=== PATIENT | female | born 1995 | race Caucasian/White ===

== ENCOUNTER 2017-02-21 11:28 | Emergency (ER) | payer SELFPAY ==
--- NOTE | 2017-02-21 12:41 | ER Document Report ---
ED General - General Chief Complaint: Sore Throat Stated Complaint: SORE THROAT Time Seen by Provider: 02/21/17 12:26 Mode of Arrival: Ambulatory Information source: Patient Notes: 21-year-old female presents with complaints of the sore throat of 3-4 day duration and then left ear pain as well. Patient denies any fevers or chills admits pain when she swallows. Patient has had multiple streps and ear infections in the past has not had any recently TRAVEL OUTSIDE OF THE [place] IN LAST 30 DAYS: No - HPI Onset: Other Onset/Duration: Persistent Quality of pain: Achy Severity: Mild Pain Level: 1 Associated symptoms: Earache, Sore throat Exacerbated by: Food Relieved by: Denies Similar symptoms previously: No Recently seen / treated by doctor: No - Related Data Allergies/Adverse Reactions: No Known Allergies Allergy (Verified 02/21/17 12:07) Home Medications: Current Home Medications Gabapentin [Neurontin 300 mg Capsule] 300 mg PO Q8 02/21/17 [History] Lurasidone HCl [Latuda 60 mg Tablet] 60 mg PO DAILY 02/21/17 [History] Past Medical History - Social History Smoking Status: Current Every Day Smoker Cigarette use (# per day): Yes Chew tobacco use (# tins/day): No Smoking Education Provided: No Frequency of alcohol use: None Drug Abuse: None Family History: Reviewed & Not Pertinent Patient has suicidal ideation: No Renal/ Medical History: Denies: Hx Peritoneal Dialysis Psychiatric Medical History: Reports: Hx Bipolar Disorder Surgical Hx: Negative Review of Systems - Review of Systems Notes: REVIEW OF SYSTEMS: CONSTITUTIONAL : Denies fever, chills, or sweats. Denies recent illness. EENT: admits to sore throat and left ear pain CARDIOVASCULAR: Denies chest pain. Denies palpitations or racing or irregular heart beat. Denies ankle edema. RESPIRATORY: Denies cough, cold, or chest congestion. Denies shortness of breath, difficulty breathing, or wheezing. GASTROINTESTINAL: Denies abdominal pain or distention. Denies nausea, vomiting , or diarrhea. Denies blood in vomitus, stools, or per rectum. Denies black, tarry stools. Denies constipation. GENITOURINARY: Denies difficulty urinating, painful urination, burning, frequency, blood in urine, or discharge. FEMALE GENITOURINARY: Denies vaginal bleeding, heavy or abnormal periods, irregular periods. Denies vaginal discharge or odor. MUSCULOSKELETAL: Denies back or neck pain or stiffness. Denies joint pain or swelling. SKIN: Denies rash, lesions or sores. HEMATOLOGIC : Denies easy bruising or bleeding. LYMPHATIC: Denies swollen, enlarged glands. NEUROLOGICAL: Denies confusion or altered mental status. Denies passing out or loss of consciousness. Denies dizziness or lightheadedness. Denies headache. Denies weakness or paralysis or loss of use of either side. Denies problems with gait or speech. Denies sensory loss, numbness, or tingling. Denies seizures. PSYCHIATRIC: Denies anxiety or stress. Denies depression, suicidal ideation, or homicidal ideation. ALL OTHER SYSTEMS REVIEWED AND NEGATIVE. PHYSICAL EXAMINATION: GENERAL: Well-appearing, well-nourished and in no acute distress. HEAD: Atraumatic, normocephalic. EYES: Pupils equal round and reactive to light, extraocular movements intact, conjunctiva are normal. ENT: bilateral tonsillar enlargement with ulcerations, left ear exudative NECK: Normal range of motion, supple without lymphadenopathy LUNGS: Breath sounds clear to auscultation bilaterally and equal. No wheezes rales or rhonchi. HEART: Regular rate and rhythm without murmurs ABDOMEN: Soft, nontender, nondistended abdomen. No guarding, no rebound. No masses appreciated. Female : deferred Musculoskeletal: Normal range of motion, no pitting or edema. No cyanosis. NEUROLOGICAL: Cranial nerves grossly intact. Normal speech, normal gait. Normal sensory, motor exams PSYCH: Normal mood, normal affect. SKIN: Warm, Dry, normal turgor, no rashes or lesions noted. Dictation was performed using [employer] voice recognition software Physical Exam - Vital signs Vitals: Temp Pulse Resp BP Pulse Ox 98.6 F 72 16 99/60 L 98 02/21/17 11:42 02/21/17 11:42 02/21/17 11:42 02/21/17 11:42 02/21/17 11:42 Course - Re-evaluation Re-evalutation: 02/21/17 12:52 Patient has otitis media, rapid step pending 02/21/17 13:20 Strep was negative After performing a Medical Screening Examination, I estimate there is LOW risk for ACUTE CORONARY SYNDROME, RESPIRATORY FAILURE, SEPSIS OR MENINGITIS, thus I consider the discharge disposition reasonable. I have reevaluated this patient multiple times and no significant life threatening changes are noted. The patient and I have discussed the diagnosis and risks, and we agree with discharging home with close follow-up. We also discussed returning to the Emergency Department immediately if new or worsening symptoms occur. We have discussed the symptoms which are most concerning (e.g., changing or worsening pain, trouble swallowing or breathing, neck stiffness, fever) that necessitate immediate return. - Vital Signs Vital signs: Temp Pulse Resp BP Pulse Ox 98.6 F 72 16 99/60 L 98 02/21/17 11:42 02/21/17 11:42 02/21/17 11:42 02/21/17 11:42 02/21/17 11:42 Discharge - Discharge Clinical Impression: Sore throat (viral) Otitis media Qualifiers: Otitis media type: suppurative Chronicity: acute Laterality: left Recurrence: not specified as recurrent Spontaneous tympanic membrane rupture: without spontaneous rupture Qualified Code(s): H66.002 - Acute suppurative otitis media without spontaneous rupture of ear drum, left ear Condition: Stable Disposition: HOME, SELF-CARE Instructions: Otitis Media ([facility]) Prescriptions: Amoxicillin 875 mg PO BID #20 tablet Referrals: [facility] [Provider Group] - Follow up tomorrow
[2017-02-21 13:27] VITALS: BP 100/65
== END 2017-02-21 13:27 | disposition home or self-care (01) ==
LOC: ER 11:28
DX: J02.8 Acute pharyngitis due to other specified organisms (principal); B97.89 Other viral agents as the cause of diseases classified elsewhere; H66.002 Acute suppurative otitis media without spontaneous rupture of ear drum, left ear; F17.210 Nicotine dependence, cigarettes, uncomplicated
CPT/HCPCS: 87070; 87880; 99283

== ENCOUNTER 2017-02-24 18:09 | Emergency (ER) | payer SELFPAY ==
[2017-02-24] MEDS ORDERED: CLINDAMYCIN PHOSPHATE INJ 300 MG/2 ML SDV IV ONE (20:13)
[2017-02-24] MEDS ORDERED: DEXAMETHASONE SOD PHOS INJ 10 MG/1 ML VIAL IV ONE (20:15)
[2017-02-24] MEDS ORDERED: HYDROMORPHONE HCL INJ/PF 2 MG/ML AMPULE IV ONE ×2 (20:16→22:57)
[2017-02-24 20:40] LABS: ABSOLUTE EOSINOPHILS # (AUTO) 0.1 10^3/uL (0.0-0.6); ABSOLUTE LYMPHOCYTES (AUTO) 1.1 10^3/uL (0.5-4.7); ABSOLUTE MONOCYTES (AUTO) 0.9 10^3/uL (0.1-1.4); ABSOLUTE NEUT (AUTO) 6.7 10^3/uL (1.7-8.2); BASOPHILS % (AUTO) 0.5 % (0-2); EOSINOPHILS % (AUTO) 1.4 % (0-6); HEMATOCRIT 40.8 % (36.0-47.0); HEMOGLOBIN 14.3 g/dL (12.0-15.5); HGB HCT DIFFERENCE 2.1; LYMPHOCYTES % (AUTO) 12.3 % (13-45); MEAN CORPUSCULAR HEMOGLOBIN 31.3 pg (27.0-33.4); MEAN CORPUSCULAR VOLUME 90 fl (80-97); MONOCYTES % (AUTO) 9.9 % (3-13); RED BLOOD COUNT 4.56 10^6/uL (3.72-5.28); RED CELL DISTRIBUTION WIDTH 12.4 % (11.5-14.0); SEGMENTED NEUTROPHILS % (AUTO) 75.9 % (42-78); WHITE BLOOD COUNT 8.8 10^3/uL (4.0-10.5)
[2017-02-24 20:51] LABS: ALANINE AMINOTRANSFERASE 19 U/L (9-52); ALBUMIN 4.9 g/dL (3.5-5.0); ALKALINE PHOSPHATASE 88 U/L (38-126); ANION GAP 16 (5-19); ASPARTATE AMINO TRANSFERASE 18 U/L (14-36); BILIRUBIN,DIRECT 0.7 mg/dL (0.0-0.4); BILIRUBIN,TOTAL 1.4 mg/dL (0.2-1.3); BLOOD UREA NITROGEN 13 mg/dL (7-20); CALCIUM 9.8 mg/dL (8.4-10.2); CARBON DIOXIDE 22 mmol/L (22-30); CHLORIDE 97 mmol/L (98-107); CREATININE RESULT 0.74 mg/dL (0.52-1.25); GLUCOSE 91 mg/dL (75-110); POTASSIUM 4.1 mmol/L (3.6-5.0); SODIUM 134.6 mmol/L (137-145); TOTAL PROTEIN 8.4 g/dL (6.3-8.2)
--- NOTE | 2017-02-24 21:00 | ER Document Report ---
ED Medical Screen (RME) - General Chief Complaint: Sore Throat Stated Complaint: THROAT PAIN Time Seen by Provider: 02/24/17 20:03 Information source: Patient, Relative TRAVEL OUTSIDE OF THE [place]. IN LAST 30 DAYS: No - Related Data Allergies/Adverse Reactions: No Known Allergies Allergy (Verified 02/21/17 12:07) Past Medical History Renal/ Medical History: Denies: Hx Peritoneal Dialysis Psychiatric Medical History: Reports: Hx Bipolar Disorder Physical Exam - Vital signs Vitals: Temp Pulse BP Pulse Ox 99.4 F 107 H 113/64 99 02/24/17 18:38 02/24/17 18:38 02/24/17 18:38 02/24/17 18:38 Course - Vital Signs Vital signs: Temp Pulse Resp BP Pulse Ox 99.4 F 107 H 113/64 99 02/24/17 18:38 02/24/17 18:38 02/24/17 18:38 02/24/17 18:38 - Laboratory Result Diagrams: 02/24/17 20:21 02/24/17 20:21 Laboratory results interpreted by me: 02/24/17 02/24/17 20:21 20:21 Lymphocytes % 12.3 L Sodium 134.6 L Chloride 97 L Total Bilirubin 1.4 H Direct Bilirubin 0.7 H Total Protein 8.4 H
--- NOTE | 2017-02-24 21:57 | RADIOLOGY REPORT (SQ) ---
EXAM DESCRIPTION: CT SOFT TISSUE NECK WITH COMPLETED DATE/TIME: 02/24/2017 9:15 pm REASON FOR STUDY: throat swelling COMPARISON: None. TECHNIQUE: Post IV contrasted scanning from skull base through lung apices with review of bone, soft tissue and lung windows. Reconstructed coronal and sagittal MPR images reviewed. All images stored on PACS. All CT scanners at this facility use dose modulation, iterative reconstruction, and/or weight based d osing when appropriate to reduce radiation dose to as low as reasonably achievable (ALARA). [facility]: Dose Right [facility]: CareDose [facility]: Dose Right [facility]: Teradose 4D [facility]: Mobile Tracing Services CONTRAST TYPE AND DOSE: contrast/concentration: Isovue 370.00 mg/ml; Total Contrast Delivered: 75.0 ml; Total Saline Delivered: 45.0 ml RENAL FUNCTION: None required. The patient is less than 50 years old. RADIATION DOSE: Up-to-date CT equipment and radiation dose reduction techniques were employed. CTDIv ol: 6.7 mGy. DLP: 220 mGy-cm. . LIMITATIONS: None. FINDINGS: SKULL BASE: Intact. MAJOR SALIVARY GLANDS: No solid or cystic masses. No inflammatory changes. LYMPHADENOPATHY: No adenopathy. MUCOSAL MASSES OR ASYMMETRY: Moderate tonsillar and parapharyngeal mucosal swelling. 2.5 cm left lloyd tonsillar abscess. LARYNX/CORDS: No abnormal findings. VASCULAR STRUCTURES: The major vessels are patent. LUNG APICES: Clear. BONES: Intact. THYROID: Normal size. No masses. PARANASAL SINUSES: Clear. OTHER: No other significant finding. IMPRESSION: 2.5 cm left peritonsillar abscess. TECHNICAL DOCUMENTATION: JOB ID: [id number] Quality ID # [id number]: Final reports with documentation of one or more dose reduction techniques (e.g., Au tomated exposure control, adjustment of the mA and/or kV according to patient size, use of iterative reconstruction technique) 2010 [employer]- All Rights Reserved
--- NOTE | 2017-02-24 22:11 | ER Document Report ---
ED General - General Chief Complaint: Sore Throat Stated Complaint: THROAT PAIN Time Seen by Provider: 02/24/17 20:03 Information source: Patient, Relative Notes: Patient is a 21-year-old female comes to emergency room complaining of a severe sore throat. Her and state that she was seen in this emergency room on February 21, 2017 with a similar complaint of having a sore throat. Patient was started on amoxicillin 875 twice a day and was sent home. Patient states that she thought she was getting better but yesterday the sore throat began to get worse and the swelling became worse to where she can barely open her mouth and has difficult time maintaining her own secretions. She has had a low-grade fever. Further history reveals patient stating that she has a long history of multiple times having strep throat in the past. She has a history of mitral valve prolapse and dysautonomia. She continues to smoke 2 packs of cigarettes a day. Last menstrual period approximately 2 weeks ago TRAVEL OUTSIDE OF THE [place] IN LAST 30 DAYS: No - HPI Pain Level: 5 Associated symptoms: Body/muscle aches, Drooling, Fever, Nausea, Sore throat, Weakness. denies: Vomiting Exacerbated by: Food Relieved by: Denies Similar symptoms previously: Yes Recently seen / treated by doctor: Yes - Related Data Allergies/Adverse Reactions: No Known Allergies Allergy (Verified 02/21/17 12:07) Past Medical History - General Information source: Patient, Relative Last Menstrual Period: 2 weeks ago - Social History Smoking Status: Current Every Day Smoker - 2 packs a day Lives with: Family, Spouse/Significant other Family History: None, Reviewed & Not Pertinent - Past Medical History Cardiac Medical History: Reports: Other - History of mitral valve prolapse Other: Dysautonomia Pulmonary Medical History: Reports: None EENT Medical History: Reports: Throat Neurological Medical History: Reports: None Renal/ Medical History: Denies: Hx Peritoneal Dialysis GI Medical History: Reports: None Skin Medical History: Reports None Psychiatric Medical History: Reports: None, Hx Bipolar Disorder Review of Systems - Review of Systems Constitutional: Fever, Malaise EENT: Throat pain, Difficulty swallowing, Throat swelling Cardiovascular: No symptoms reported Respiratory: No symptoms reported Gastrointestinal: No symptoms reported Genitourinary: No symptoms reported Female Genitourinary: No symptoms reported Musculoskeletal: No symptoms reported Skin: No symptoms reported Hematologic/Lymphatic: No symptoms reported Neurological/Psychological: No symptoms reported Physical Exam - Vital signs Vitals: Temp Pulse BP Pulse Ox 99.4 F 107 H 113/64 99 02/24/17 18:38 02/24/17 18:38 02/24/17 18:38 02/24/17 18:38 Interpretation: Febrile - General General appearance: Other - As stated this is a 21-year-old female who appears ill at this time. She is slightly pale little with drawn difficulty and swelling is noticeable on examination.. No: Appears well In distress: None - HEENT Head: Normocephalic, Atraumatic Mouth/Lips: No: Angioedema Mucous membranes: Moist Pharynx: Erythema, Exudate, Peritonsillar abscess, Tonsillar hypertrophy, Other - Currently patient uvula is only obstructed on the left side whether it is touching the right side is open and airways patent. Neck: Anterior cervical chain - Respiratory Respiratory status: No respiratory distress Chest status: Nontender Breath sounds: Normal, Other - On physical examination the patient's chest and respiratory function are normal at this time. Airway is patent. Breath sounds are clear to auscultation.. No: Rales, Rhonchi, Stridor, Wheezing - Cardiovascular Rhythm: Tachycardia Heart sounds: Normal auscultation - Neurological Cognition: Normal Orientation: AAOx4 [place] Line Coma Scale Eye Opening: Spontaneous Binh Coma Scale Verbal: Oriented Binh Coma Scale Motor: Obeys Commands Binh Coma Scale Total: 15 - Skin Skin Temperature: Cool Skin Moisture: Moist Skin Color: Pale Skin Turgor: Elastic Course - Vital Signs Vital signs: Temp Pulse Resp BP Pulse Ox 99.1 F 90 18 116/71 95 02/24/17 22:53 02/24/17 22:53 02/24/17 22:53 02/24/17 22:53 02/24/17 22:53 - Laboratory Result Diagrams: 02/24/17 20:21 02/24/17 20:21 Laboratory results interpreted by me: 02/24/17 02/24/17 20:21 20:21 Lymphocytes % 12.3 L Sodium 134.6 L Chloride 97 L Total Bilirubin 1.4 H Direct Bilirubin 0.7 H Total Protein 8.4 H - Diagnostic Test Radiology reviewed: Reports reviewed Radiology results interpreted by me: 02/24/17 22:15 Radiology reports patient has a 2.5 left peritonsillar abscess. Critical Care Note - Critical Care Note Total time excluding time spent on procedures (mins): 75 Comments: Patient has been here for extended period of time secondary to her present condition and also for discussions [id number] with who is originally seen patient on February 21, 2017 and treated with antibiotics. Since we had to wait extended period of time for patient's labs as well as CT come back we did place her on some clindamycin IV. I did contact [facility] transfer at [phone] and talk to the presenting nurse at that time. She put him in contact with the ears nose and throat consulting solution director Dr. Anglin to call me back right away and we had a discussion about patient's condition. He felt the patient breathing much easier since the steroids and fluids had gone in as well as her trismus subsiding and her drooling also stopping the he would rather do her outpatient tomorrow at his clinic. While Dr. Anglin was on the phone went back and reevaluated patient 1 more time she agrees with this presentation and she is electing to see him at his off-site facility which is at [address] [place] [address] [facility] office. Number there is [phone] per Dr. Anglin patient is to contact the office first thing in the morning between 12/28/1929 and see him in that office for the abscess. He has requested that we place her on Augmentin 875 twice daily as well as some Lortab elixir and prednisone 10 mg 1 tablet in the morning before going. Discharge - Discharge Clinical Impression: Peritonsillar abscess Condition: Stable Disposition: HOME, SELF-CARE Instructions: Abscess ([facility]), Oral Narcotic Medication ([facility]) Additional Instructions: At this time he can go home. As we discussed he will see ears nose and throat specialist Dr. Anglin his office number is [phone] your call this number after 8 AM in the morning and he wants you to go to his [place] office which is at [address] [place] [address] as stated in [facility] office. We are having you take the Augmentin medication as well as take one 20 mg prednisone tablet first thing in the morning. We also discussed should you have any increasing shortness of breath or unable to handling her secretions return to ER at once for a recheck. Prescriptions: Amox Tr/Potassium Clavulanate [Augmentin 875-125 Tablet] 1 tab PO BID 14 Days # 28 tablet Hydrocodone/Acetaminophen [Hydrocodon-Acetamin 7.5-325/15] 10 ml PO Q6H PRN # 120 ml PRN Reason: For Pain Forms: Elevated Blood Pressure, Return to Work
[2017-02-24] MEDS ORDERED: NORMAL SALINE 1000 ML 1,000 ML IV ONE (22:56)
[2017-02-25] MEDS ORDERED: HYDROMORPHONE HCL INJ/PF 2 MG/ML AMPULE IV ONE (00:24)
[2017-02-25 00:41] VITALS: BP 108/64
== END 2017-02-25 00:42 | disposition home or self-care (01) ==
LOC: ER 18:09
DX: J36 Peritonsillar abscess (principal); R50.9 Fever, unspecified; R53.81 Other malaise; F17.210 Nicotine dependence, cigarettes, uncomplicated
CPT/HCPCS: 96376; 99283; 96361; 96375; 96365; 36415; 87040; 87070; 87880; 85025; 80053; 70491; J1170; J7030; J1100

== ENCOUNTER 2017-10-03 20:55 | Emergency (ER) | payer SELFPAY ==
--- NOTE | 2017-10-03 21:47 | ER Document Report ---
ED Medical Screen (RME) - General Chief Complaint: Chest Pain Stated Complaint: CHEST PAIN Time Seen by Provider: 10/03/17 21:44 Notes: 21-year-old female, chief complaint of feeling discomfort in her chest, feeling lightheaded, and she states she feels like her heart is making irregular beats. She reports that she has increased significant discomfort when she feels the irregular beats. She denies passing out, nausea vomiting, pain is from the lower chest to the upper chest and nonspecific. She denies history of the same. She smokes, she admits to some caffeine use today but not in excess. She denies recreational drugs. LMP within the past month. TRAVEL OUTSIDE OF THE [place] IN LAST 30 DAYS: No - Related Data Allergies/Adverse Reactions: No Known Allergies Allergy (Verified 02/21/17 12:07) Past Medical History - Social History Chew tobacco use (# tins/day): No Frequency of alcohol use: None Drug Abuse: None Renal/ Medical History: Denies: Hx Peritoneal Dialysis Psychiatric Medical History: Reports: Hx Bipolar Disorder Physical Exam - Vital signs Vitals: Temp Pulse Resp BP Pulse Ox 98.0 F 87 20 134/87 H 100 10/03/17 21:42 10/03/17 21:42 10/03/17 21:42 10/03/17 21:42 10/03/17 21:42 - Respiratory Respiratory status: No respiratory distress Breath sounds: Normal. No: Decreased air movement, Wheezing - Cardiovascular Rhythm: Regular. No: Irregularly irregular, Extrasystoles, Tachycardia Heart sounds: Normal auscultation, S1 appreciated, S2 appreciated Course - Vital Signs Vital signs: Temp Pulse Resp BP Pulse Ox 98.0 F 87 20 134/87 H 100 10/03/17 21:42 10/03/17 21:42 10/03/17 21:42 10/03/17 21:42 10/03/17 21:42
--- NOTE | 2017-10-03 22:35 | RADIOLOGY REPORT (SQ) ---
EXAM DESCRIPTION: CHEST 2 VIEWS COMPLETED DATE/TIME: 10/03/2017 10:02 pm REASON FOR STUDY: chest pain COMPARISON: None. TECHNIQUE: Frontal and lateral radiographic views of the chest acquired. NUMBER OF VIEWS: Two view. LIMITATIONS: None. FINDINGS: LUNGS AND PLEURA: No opacities, masses or pneumothorax. No pleural effusion. MEDIASTINUM AND HILAR STRUCTURES: No masses or contour abnormalities. HEART AND VASCULAR STRUCTURES: Heart normal size. No evidence for failure. BONES: No acute findings. HARDWARE: None in the chest. OTHER: No other significant finding. IMPRESSION: NO SIGNIFICANT RADIOGRAPHIC FINDING IN THE CHEST. TECHNICAL DOCUMENTATION: JOB ID: [id number] [employer]- All Rights Reserved Reading location - IP/workstation name: [email or web address]
[2017-10-03 22:36] LABS: ABSOLUTE BASOPHILS # (AUTO) 0.1 10^3/uL (0.0-0.2); ABSOLUTE EOSINOPHILS # (AUTO) 0.7 10^3/uL (0.0-0.6); ABSOLUTE LYMPHOCYTES (AUTO) 2.4 10^3/uL (0.5-4.7); ABSOLUTE MONOCYTES (AUTO) 0.8 10^3/uL (0.1-1.4); ABSOLUTE NEUT (AUTO) 2.7 10^3/uL (1.7-8.2); BASOPHILS % (AUTO) 1.1 % (0-2); EOSINOPHILS % (AUTO) 11.1 % (0-6); HEMATOCRIT 41.8 % (36.0-47.0); HEMOGLOBIN 14.3 g/dL (12.0-15.5); LYMPHOCYTES % (AUTO) 36.1 % (13-45); MEAN CORPUSCULAR HEMOGLOBIN 30.9 pg (27.0-33.4); MEAN CORPUSCULAR HGB CONC 34.1 g/dL (32.0-36.0); MEAN CORPUSCULAR VOLUME 91 fl (80-97); MONOCYTES % (AUTO) 11.4 % (3-13); PLATELET COUNT 204 10^3/uL (150-450); RED BLOOD COUNT 4.61 10^6/uL (3.72-5.28); RED CELL DISTRIBUTION WIDTH 13.8 % (11.5-14.0); SEGMENTED NEUTROPHILS % (AUTO) 40.3 % (42-78); TOTAL CELLS COUNTED % (AUTO) 100 %; WHITE BLOOD COUNT 6.7 10^3/uL (4.0-10.5)
[2017-10-03 22:40] LABS: APPEARANCE,URINE CLEAR; BILIRUBIN,URINE NEGATIVE (NEGATIVE); COLOR,URINE YELLOW; GLUCOSE, URINE NEGATIVE (NEGATIVE); KETONES,URINE NEGATIVE (NEGATIVE); LEUKOCYTE ESTERASE,URINE TRACE (NEGATIVE); NITRITE,URINE NEGATIVE (NEGATIVE); PROTEIN,URINE NEGATIVE (NEGATIVE); URINE SPECIFIC GRAVITY 1.021
[2017-10-03 22:54] LABS: ALANINE AMINOTRANSFERASE 23 U/L (9-52); ALBUMIN 4.7 g/dL (3.5-5.0); ALKALINE PHOSPHATASE 45 U/L (38-126); ANION GAP 12 (5-19); ASPARTATE AMINO TRANSFERASE 18 U/L (14-36); BILIRUBIN,DIRECT 0.3 mg/dL (0.0-0.4); BILIRUBIN,TOTAL 0.3 mg/dL (0.2-1.3); BLOOD UREA NITROGEN 10 mg/dL (7-20); CALCIUM 9.9 mg/dL (8.4-10.2); CARBON DIOXIDE 26 mmol/L (22-30); CHLORIDE 105 mmol/L (98-107); GLUCOSE 96 mg/dL (75-110); POTASSIUM 3.9 mmol/L (3.6-5.0); TOTAL PROTEIN 7.8 g/dL (6.3-8.2)
[2017-10-04] MEDS ORDERED: DEXAMETHASONE SOD PHOS INJ 10 MG/1 ML VIAL IM ONE (00:17)
--- NOTE | 2017-10-04 00:20 | ER Document Report ---
ED General - General Chief Complaint: Chest Pain Stated Complaint: CHEST PAIN Time Seen by Provider: 10/03/17 21:44 Notes: Patient is a 21-year-old female, chief complaint of feeling discomfort in her chest, feeling lightheaded, and she states she feels like her heart is making irregular beats. She reports that she has increased significant discomfort when she feels the irregular beats. She denies passing out, nausea vomiting, pain is from the lower chest to the upper chest and nonspecific. She denies history of the same. She smokes, she admits to some caffeine use today but not in excess. She denies recreational drugs. LMP within the past month. TRAVEL OUTSIDE OF THE [place] IN LAST 30 DAYS: No - Related Data Allergies/Adverse Reactions: No Known Allergies Allergy (Verified 02/21/17 12:07) Past Medical History - General Information source: Patient - Social History Smoking Status: Current Every Day Smoker Chew tobacco use (# tins/day): No Smoking Education Provided: Yes - <3 min Frequency of alcohol use: None Drug Abuse: None Lives with: Family Family History: None, Reviewed & Not Pertinent Patient has suicidal ideation: No Patient has homicidal ideation: No Renal/ Medical History: Denies: Hx Peritoneal Dialysis Psychiatric Medical History: Reports: Hx Bipolar Disorder Surgical Hx: Negative - Immunizations Immunizations up to date: Yes Hx Diphtheria, Pertussis, Tetanus Vaccination: Yes Review of Systems - Review of Systems Constitutional: No symptoms reported EENT: No symptoms reported Cardiovascular: See HPI Respiratory: See HPI Gastrointestinal: No symptoms reported Genitourinary: No symptoms reported Female Genitourinary: No symptoms reported Musculoskeletal: No symptoms reported Skin: No symptoms reported Hematologic/Lymphatic: No symptoms reported Neurological/Psychological: No symptoms reported Physical Exam - Vital signs Vitals: Temp Pulse Resp BP Pulse Ox 98.0 F 87 20 134/87 H 100 10/03/17 21:42 10/03/17 21:42 10/03/17 21:42 10/03/17 21:42 10/03/17 21:42 - Notes Notes: GENERAL: Alert, interacts well. No acute distress. HEAD: Normocephalic, atraumatic. EYES: Pupils equal, round, and reactive to light. Extraocular movements intact. ENT: Oral mucosa moist, tongue midline. NECK: Full range of motion. Supple. Trachea midline. LUNGS: Clear to auscultation bilaterally, no wheezes, rales, or rhonchi. No respiratory distress. There is reproducible palpation over the side of the sternum mainly on the right, otherwise chest palpation is unremarkable. HEART: Regular rate and rhythm. No murmur ABDOMEN: Soft, non-tender. Non-distended. Bowel sounds present in all 4 quadrants. EXTREMITIES: Moves all 4 extremities spontaneously. No edema, normal radial and dorsalis pedis pulses bilaterally. No cyanosis. BACK: no cervical, thoracic, lumbar midline tenderness. No saddle anesthesia, normal distal neurovascular exam. NEUROLOGICAL: Alert and oriented x3. Normal speech. [cranial nerves II through XII grossly intact]. PSYCH: Normal affect, normal mood. SKIN: Warm, dry, normal turgor. No rashes or lesions noted. Course - Re-evaluation Re-evalutation: On reevaluation after triage patient sitting on bed, smiling, drinking water. She states she feels a lot better and the pain is almost gone. She has reproducible chest wall tenderness. She reports that she was having palpitations but on the EKG and monitor no arrhythmia is noted, EKG unremarkable , chest x-ray unremarkable. CBC shows mild elevation of eosinophils, nonspecific, chemistry including TSH unremarkable. Urine shows mildly elevated specific gravity. Discussed results. No specific recommendations at this time other than treating her chest wall pain, discussed smoking cessation, general recommendations, follow-up, return precautions. Based on her lack of symptoms, nonspecific presentation, physical exam, unremarkable vital signs I have low suspicion of PE or emergent etiology of her symptoms. Patient states satisfaction and agreement with plan. - Vital Signs Vital signs: Temp Pulse Resp BP Pulse Ox 98.0 F 87 17 99/73 L 100 10/03/17 21:42 10/03/17 21:42 10/04/17 00:34 10/04/17 00:35 10/04/17 00:34 - Laboratory Result Diagrams: 10/03/17 22:20 10/03/17 22:20 Laboratory results interpreted by me: 10/03/17 10/03/17 22:20 22:20 Seg Neutrophils % 40.3 L Eosinophils % 11.1 H Absolute Eosinophils 0.7 H Urine Urobilinogen 2.0 H Ur Leukocyte Esterase TRACE H Discharge - Discharge Clinical Impression: Chest wall pain, Palpitations Condition: Stable Disposition: HOME, SELF-CARE Additional Instructions: Your workup shows some dehydration but no other concerning abnormalities. For the palpitations I recommend avoiding caffeine, stopping smoking, and staying hydrated. If symptoms continue follow up with primary care for possible cardiology referral. For the chest wall pain you have been medicated. Hydration and rest help with this. You can apply heat to the chest wall as well. This can take time to resolve. Return if you worsen - vomiting, difficulty breathing, passing out, fever, or any other concerning or worsening symptoms. Forms: Treatment of Relative/Child
[2017-10-04 00:48] VITALS: BP 99/73
--- NOTE | 2017-10-04 09:00 | EKG REPORT ---
SEVERITY:- NORMAL ECG - SINUS RHYTHM : Confirmed by: Josiah Hollins 04-Oct-2017 08:58:45
== END 2017-10-04 01:00 | disposition home or self-care (01) ==
LOC: ER 20:55
DX: R07.89 Other chest pain (principal); R00.2 Palpitations; R42 Dizziness and giddiness; F17.200 Nicotine dependence, unspecified, uncomplicated
CPT/HCPCS: 93005; 99285; 96372; 36415; 84443; 85025; 81025; 80053; 81001; 71046; 93010; J1100

== ENCOUNTER 2018-08-11 15:07 | Emergency (ER) | payer SELFPAY ==
[2018-08-11] MEDS ORDERED: CLINDAMYCIN HCL 150 MG CAPSULE PO ONE (17:00)
[2018-08-11] MEDS ORDERED: LIDOCAINE 2% VISCOUS SOLN 20 ML UDCUP PO ONE (17:00)
--- NOTE | 2018-08-11 17:05 | ER Document Report ---
ED Oral Problem - General Chief Complaint: Toothache Stated Complaint: TOOTHACHE, FACIAL PAIN Time Seen by Provider: 08/11/18 16:30 Mode of Arrival: Ambulatory Information source: Patient Notes: 22-year-old male presented to ED for complaint of dental pain to the left lower jaw. She states that jaw swelling and painful. She states the pain started about a week ago it is now making her neck and arm hurt for the last 3 or 4 days. Patient is alert oriented respirations regular and unlabored speaking in full sentences. Patient does have a cavity to tooth #18 with very minimal swelling to the jaw no redness or inflammation to the face. No lymphadenopathy. TRAVEL OUTSIDE OF THE [place] IN LAST 30 DAYS: No - HPI Patient complains to provider of: Swelling of jaw, Toothache Onset: Last week Onset: Gradual Quality of pain: Achy, Throbbing Severity: Moderate Pain Level: 4 Associated symptoms: Toothache Worsened by: Cold Relieved by: Nothing Similar symptoms previously: Yes Recently seen / treated by doctor/dentist: No - Related Data Allergies/Adverse Reactions: No Known Allergies Allergy (Verified 08/11/18 15:08) Past Medical History - General Information source: Patient - Social History Smoking Status: Current Every Day Smoker Cigarette use (# per day): Yes - 7-10 cigarettes a day Smoking Education Provided: Yes - 4 minutes Lives with: Family Family History: None, Reviewed & Not Pertinent Patient has suicidal ideation: No Patient has homicidal ideation: No - Past Medical History Cardiac Medical History: Reports: Other - Mitral valve prolapse Pulmonary Medical History: Reports: None EENT Medical History: Reports: None Neurological Medical History: Reports: None Endocrine Medical History: Reports: None Renal/ Medical History: Reports: None Malignancy Medical History: Reports: None GI Medical History: Reports: None Musculoskeletal Medical History: Reports None Skin Medical History: Reports None Psychiatric Medical History: Reports: Hx Bipolar Disorder Traumatic Medical History: Reports: None Infectious Medical History: Reports: None Past Surgical History: Reports: Hx Dilation and Curettage - Immunizations Immunizations up to date: Yes Hx Diphtheria, Pertussis, Tetanus Vaccination: Yes Review of Systems - Review of Systems Constitutional: No symptoms reported EENT: Mouth pain, Mouth swelling Cardiovascular: No symptoms reported Respiratory: No symptoms reported Gastrointestinal: No symptoms reported Genitourinary: No symptoms reported Female Genitourinary: No symptoms reported Musculoskeletal: No symptoms reported Skin: No symptoms reported Hematologic/Lymphatic: No symptoms reported Neurological/Psychological: No symptoms reported Physical Exam - Vital signs Vitals: Temp Pulse Resp BP Pulse Ox 98.1 F 86 16 110/64 99 08/11/18 15:14 08/11/18 15:14 08/11/18 15:14 08/11/18 15:14 08/11/18 15:14 Interpretation: Normal - General General appearance: Appears well, Alert - HEENT Head: Normocephalic, Atraumatic Eyes: Normal Pupils: PERRL Ears: Normal External canal: Normal Tympanic membrane: Normal Sinus: Normal Nasal: Normal Mouth/Lips: Caries Mucous membranes: Normal Pharynx: Post nasal drainage Neck: Normal - Respiratory Respiratory status: No respiratory distress Chest status: Nontender Breath sounds: Normal Chest palpation: Normal - Cardiovascular Rhythm: Regular Heart sounds: Normal auscultation Murmur: No - Abdominal Inspection: Normal Distension: No distension Bowel sounds: Normal Tenderness: Nontender Organomegaly: No organomegaly - Back Back: Normal, Nontender - Extremities General upper extremity: Normal inspection, Nontender, Normal color, Normal ROM, Normal temperature General lower extremity: Normal inspection, Nontender, Normal color, Normal ROM, Normal temperature, Normal weight bearing. No: Valencia's sign - Neurological Neuro grossly intact: Yes Cognition: Normal Orientation: AAOx4 Binh Coma Scale Eye Opening: Spontaneous Binh Coma Scale Verbal: Oriented Binh Coma Scale Motor: Obeys Commands Binh Coma Scale Total: 15 Speech: Normal Motor strength normal: LUE, RUE, LLE, RLE Sensory: Normal - Psychological Associated symptoms: Normal affect, Normal mood - Skin Skin Temperature: Warm Skin Moisture: Dry Skin Color: Normal Course - Re-evaluation Re-evalutation: 08/11/18 21:33 Presentation is most consistent with likely an infected tooth. Airway is patent. Vitals within normal limits. Patient is able swallow without any difficulty. There is no significant facial swelling. No evidence of Kevan angina, apical abscess, or airway obstruction. Patient will be started on antibiotics. I've instructed to follow-up with dentistry as earliest ability for definitive management. At this time will discharge with return precautions and follow-up recommendations. Verbal discharge instructions given a the bedside and opportunity for questions given. Medication warnings reviewed. Patient is in agreement with this plan and has verbalized understanding of return precautions and the need for primary care follow-up in the next 24-72 hours. - Vital Signs Vital signs: Temp Pulse Resp BP Pulse Ox 98.4 F 82 16 118/70 100 08/11/18 17:14 08/11/18 17:14 08/11/18 17:14 08/11/18 17:14 08/11/18 17:14 Discharge - Discharge Clinical Impression: Pain due to dental caries Condition: Stable Disposition: HOME, SELF-CARE Additional Instructions: TOOTHACHE: Your pain is due to dental decay. The tooth must be repaired in order for you to feel better. You will, therefore, be referred to a dentist. We do not have dentists on the staff at [facility]. Severe swelling or drainage around a tooth usually means a dental abscess. This also requires evaluation and treatment by the dentist, but antibiotics may be prescribed while awaiting dental treatment. You should be rechecked immediately if you develop major swelling of the face, increasing pain, a lump in the jaw or gums, headache, difficulty swallowing, or fever. Please place a small amount of the viscous lidocaine on your finger and rub it to the area where you are hurting. You can do this every 3-4 hours. CLINDAMYCIN: You have been given a prescription for the antibiotic clindamycin. It is often prescribed for infections in the mouth, such as dental infections or abs cesses, and for skin infections due to MRSA. It's important that you take all the medication, unless instructed otherwise by your physician. Failure to complete the entire course can result in relapse of your condition. Common side effects of antibiotics include nausea, intestinal cramping, or diarrhea. Women may develop vaginal yeast infections, and babies can get yeast (thrush) in the mouth following the use of antibiotics. Contact your physician if you develop significant side effects from this medication. Allergy to this antibiotic can result in hives, wheezing, faintness, or itching. If symptoms of allergy occur, stop the medication and call the doctor. FOLLOW-UP CARE: You have been referred for follow-up care to the dentists listed below. Call the dentists office for an appointment as you were instructed or within the next two days. If you experience worsening or a significant change in your symptoms, notify the physician immediately or return to the Emergency Department at any time for re-evaluation. [facility] [address], [place] [facility] [address] [place] [address] [facility] [address] [facility] [address] [facility] [address] [facility] [email or web address] [address] [place] [address] Tuesday- 8:00am to 5:00 pm [facility] other [facility]. Charges based on income and family size and accepts Medicare, Medicaid, and Insurances Will pull molars [facility] Student [facility] [id number] Hours of Operation 8:00 am - 4:30 pm weekdays The following dental offices accept Medicaid: [facility] [address] Dr. Alvarado Dr. Duran Dr. Guzmán Mina Brown [place], and [facility] Dr. Romero ([place]) Dr. Greenberg ([place]) [facility] Drs. Mariano and Prasanna ([place]) Dr. Chery ([place]) [facility] Dr. Hancock ([place]) Drs. Vera and ([place]) Medicaid Care Line Prescriptions: Clindamycin HCl 300 mg PO Q6 #28 capsule Forms: Smoking Cessation Education
[2018-08-11 17:14] VITALS: BP 118/70
== END 2018-08-11 17:21 | disposition home or self-care (01) ==
LOC: ER 15:07
DX: K02.9 Dental caries, unspecified (principal); R51 Headache; F17.210 Nicotine dependence, cigarettes, uncomplicated
CPT/HCPCS: 99406; 99282; J3490

== ENCOUNTER 2019-11-28 17:39 | Emergency (ER) | payer SELFPAY ==
--- NOTE | 2019-11-28 17:58 | ER Document Report ---
ED Medical Screen (RME) - General Chief Complaint: OB Problem (<20wks) Stated Complaint: ABDOMINAL PAIN Time Seen by Provider: 11/28/19 17:51 TRAVEL OUTSIDE OF THE [place] IN LAST 30 DAYS: No - HPI Notes: 11/28/19 17:57 24 yr old female A1 5 weeks 4 days started with vaginal bleeding this morning with red bright blood while she was using the bathroom this morning. Along with some abdominal cramping. Is not currently having any bleeding. Is seen by the health department as her D[employer]EL[employer]. Is on prenatals. Denies any chest pain shortness of breath nausea vomiting or diarrhea. Denies any fevers or chills. Patient says she is having subtle cramping I have greeted and performed a rapid initial assessment of this patient. A comprehensive ED assessment and evaluation of the patient, analysis of test results and completion of the medical decision making process will be conducted by additional ED providers. PHYSICAL EXAMINATION: CV: s1, s2 regular LUNGS: No respiratory distress - Related Data Allergies/Adverse Reactions: No Known Allergies Allergy (Verified 08/11/18 15:08) Home Medications: Past Medical History - Social History Frequency of alcohol use: None Drug Abuse: None Renal/ Medical History: Denies: Hx Peritoneal Dialysis Psychiatric Medical History: Reports: Hx Bipolar Disorder Past Surgical History: Reports: Hx Dilation and Curettage - Immunizations Immunizations up to date: Yes Hx Diphtheria, Pertussis, Tetanus Vaccination: Yes Physical Exam - Vital signs Vitals: Temp Pulse Resp BP Pulse Ox 98.5 F 95 18 125/79 99 11/28/19 17:42 11/28/19 17:42 11/28/19 17:42 11/28/19 17:42 11/28/19 17:42 Course - Vital Signs Vital signs: Temp Pulse Resp BP Pulse Ox 98.5 F 95 18 125/79 99 11/28/19 17:42 11/28/19 17:42 11/28/19 17:42 11/28/19 17:42 11/28/19 17:42
--- NOTE | 2019-11-28 19:12 | RADIOLOGY REPORT (SQ) ---
EXAM DESCRIPTION: U/S OB TRANSVAG W/DOPPLER IMAGES COMPLETED DATE/TIME: 11/28/2019 6:48 pm REASON FOR STUDY: [id number], vag bleeding, cramping COMPARISON: None. TECHNIQUE: Transvaginal static and realtime grayscale images acquired of the pelvis. Additional kemi cted spectral and color Doppler images recorded. All images stored on PACs. bHCG: Unknown CLINICAL DATES: LMP 10/20/2019 5 weeks 4 days LIMITATIONS: None. FINDINGS: FETUS: Single Living intrauterine . ULTRASOUND EGA: 5 weeks 4 days by gestational sac size ULTRASOUND ANDRE: 07/26/2020 EFW: Not applicable less than 20 weeks. CRL: pole is not yet seen. FHR: pole is not yet seen. Beats per minute. SURVEY: No visualized anomalies. AMNIOTIC FLUID: Adequate amount. PLACENTA: Not yet developed due to early gestation. SUBCHORIONIC BLEED: No SIZE OF BLEED: Not applicable. UTERUS: No masses. No anomalies. CERVICAL LENGTH: 3.1 Closed. RIGHT ADNEXA: Ovary not seen. No adnexal free fluid. No adnexal masses. LEFT ADNEXA: Normal ovary with normal vascular flow. 2.4 x 2.4 x 1.7 cm No adnexal free fluid. No adnexal masses. FREE FLUID: None. OTHER: No other significant finding. IMPRESSION: There is an intrauterine gestational sac suggesting a gestation of 5 weeks 4 days. Feta l pole is not yet seen. Follow-up as clinically indicated. TECHNICAL DOCUMENTATION: JOB ID: [id number] 2010 [employer] All Rights Reserved Reading location - IP/workstation name: [email or web address]
[2019-11-28 19:15] LABS: ABSOLUTE EOSINOPHILS # (AUTO) 0.4 10^3/uL (0.0-0.6); ABSOLUTE LYMPHOCYTES (AUTO) 1.8 10^3/uL (0.5-4.7); ABSOLUTE MONOCYTES (AUTO) 0.5 10^3/uL (0.1-1.4); ABSOLUTE NEUT (AUTO) 3.9 10^3/uL (1.7-8.2); BASOPHILS % (AUTO) 0.4 % (0-2); EOSINOPHILS % (AUTO) 5.6 % (0-6); HEMOGLOBIN 13.9 g/dL (12.0-15.5); LYMPHOCYTES % (AUTO) 27.8 % (13-45); MEAN CORPUSCULAR HEMOGLOBIN 32.6 pg (27.0-33.4); MEAN CORPUSCULAR HGB CONC 35.5 g/dL (32.0-36.0); MEAN CORPUSCULAR VOLUME 92 fl (80-97); MONOCYTES % (AUTO) 7.1 % (3-13); PLATELET COUNT 203 10^3/uL (150-450); RED BLOOD COUNT 4.25 10^6/uL (3.72-5.28); RED CELL DISTRIBUTION WIDTH 12.8 % (11.5-14.0); SEGMENTED NEUTROPHILS % (AUTO) 59.1 % (42-78); TOTAL CELLS COUNTED % (AUTO) 100 %; WHITE BLOOD COUNT 6.6 10^3/uL (4.0-10.5)
[2019-11-28 19:37] LABS: ALBUMIN 4.4 g/dL (3.5-5.0); ALKALINE PHOSPHATASE 47 U/L (38-126); ANION GAP 6 (5-19); ASPARTATE AMINO TRANSFERASE 20 U/L (14-36); BILIRUBIN,TOTAL 0.4 mg/dL (0.2-1.3); BLOOD UREA NITROGEN 7 mg/dL (7-20); CALCIUM 9.2 mg/dL (8.4-10.2); CARBON DIOXIDE 27 mmol/L (22-30); CHLORIDE 105 mmol/L (98-107); GLUCOSE 95 mg/dL (75-110); POTASSIUM 4.1 mmol/L (3.6-5.0); TOTAL PROTEIN 7.5 g/dL (6.3-8.2)
--- NOTE | 2019-11-28 20:03 | ER Document Report ---
ED General - General Chief Complaint: OB Problem (<20wks) Stated Complaint: ABDOMINAL PAIN Time Seen by Provider: 11/28/19 17:51 TRAVEL OUTSIDE OF THE [place] IN LAST 30 DAYS: No - HPI Notes: Patient is a 24-year-old female, G3, P1 at approximately 5-1/2 weeks gestation who presents to the emergency department for evaluation of vaginal bleeding. She states she had some mild lower abdominal cramping. She states that has improved. She went to go urinate and she passed a few drops of bright red blood. She states that she has had some mild bleeding noted during transvaginal ultrasound, she has the same pad on since this afternoon. She states her cramping is minimal. She denies any fevers or chills. No nausea vomiting. No urinary symptoms. - Related Data Allergies/Adverse Reactions: No Known Allergies Allergy (Verified 08/11/18 15:08) Home Medications: Past Medical History - General Information source: Patient - Social History Smoking Status: Current Every Day Smoker Frequency of alcohol use: None Drug Abuse: None Family History: Reviewed & Not Pertinent, DM, Hypertension - Past Medical History Cardiac Medical History: Denies: Hx Atrial Fibrillation, Hx Coronary Artery Disease Pulmonary Medical History: Denies: Hx COPD Neurological Medical History: Denies: Hx Cerebrovascular Accident Endocrine Medical History: Denies: Hx Diabetes Mellitus Type 2 Renal/ Medical History: Denies: Hx Peritoneal Dialysis Malignancy Medical History: Reports: None Psychiatric Medical History: Reports: Hx Bipolar Disorder Past Surgical History: Reports: Hx Dilation and Curettage - Immunizations Immunizations up to date: Yes Hx Diphtheria, Pertussis, Tetanus Vaccination: Yes Review of Systems - Review of Systems Female Genitourinary: See HPI -: Yes All other systems reviewed and negative Physical Exam - Vital signs Vitals: Temp Pulse Resp BP Pulse Ox 98.5 F 95 18 125/79 99 11/28/19 17:42 11/28/19 17:42 11/28/19 17:42 11/28/19 17:42 11/28/19 17:42 - Notes Notes: Vital signs reviewed, please refer to chart. Head is normocephalic, atraumatic. Pupils equal round, reactive to light. Neck is supple without meningismus. Heart is regular rate and rhythm. Lungs are clear to auscultation bilaterally. Abdomen is soft, nontender, normoactive bowel sounds throughout. Extremities without cyanosis, clubbing. Posterior calves are nontender. Peripheral pulses are equal. Skin is warm and dry. Patient is awake, alert, neurological exam is nonfocal. Course - Re-evaluation Re-evalutation: 11/28/19 21:10 Patient presents to the emergency department for evaluation of bleeding during early . She only had a small amount of blood. She had an ultrasound which showed a gestational sac but no clear pole. This can still be normal given yearly stages of her . Her quantitative beta was 3766. Because of this I do not believe that the patient requires RhoGam at this point. She does not know her blood type, but states she has not received RhoGam in the past for her pregnancies. I will give her a lab slip to have her quantitative beta hCG redrawn in 48 hours. She can have it done here or go to the health department for this test. Otherwise her urine fails to show any significant signs of infection. She is otherwise stable. She is to return to the ED with worsening. - Vital Signs Vital signs: Temp Pulse Resp BP Pulse Ox 98.5 F 95 18 125/79 99 11/28/19 17:42 11/28/19 17:42 11/28/19 17:42 11/28/19 17:42 11/28/19 17:42 - Laboratory Result Diagrams: 11/28/19 18:50 11/28/19 18:50 Laboratory results interpreted by me: 11/28/19 11/28/19 18:50 20:40 Beta HCG, Quant 3766.00 H Urine Blood MODERATE H Urine Urobilinogen 2.0 H - Diagnostic Test Radiology reviewed: Reports reviewed Radiology results interpreted by me: 11/28/19 20:04 Transvaginal US 11/28/19 17:56 IMPRESSION: There is an intrauterine gestational sac suggesting a gestation of 5 weeks 4 days. pole is not yet seen. Follow-up as clinically indicated. Discharge - Discharge Clinical Impression: Vaginal bleeding during Condition: Stable Disposition: HOME, SELF-CARE Instructions: Bleeding During Early ([facility]) Additional Instructions: Your quantitative beta-hCG was 3,766 today. Please have this redrawn in 48 hours. You can present to outpatient and have it done here, or you can have this done at the health department. If you start bleeding heavier than 1 pad an hour, develop chest pain or shortness of breath, or any other new or concerning symptoms, please return immediately to the emergency department for evaluation. Forms: Follow-Up Laboratory Testing
[2019-11-28 21:02] LABS: APPEARANCE,URINE SLIGHTLY-CLOUDY; BILIRUBIN,URINE NEGATIVE (NEGATIVE); COLOR,URINE YELLOW; GLUCOSE, URINE NEGATIVE (NEGATIVE); KETONES,URINE NEGATIVE (NEGATIVE); LEUKOCYTE ESTERASE,URINE NEGATIVE (NEGATIVE); NITRITE,URINE NEGATIVE (NEGATIVE); PROTEIN,URINE NEGATIVE (NEGATIVE); URINE SPECIFIC GRAVITY 1.015
[2019-11-28 21:31] VITALS: BP 124/74
== END 2019-11-28 21:29 | disposition home or self-care (01) ==
LOC: ER 17:39
DX: O46.91 Antepartum hemorrhage, unspecified, first trimester (principal); O26.891 Other specified pregnancy related conditions, first trimester; R10.30 Lower abdominal pain, unspecified; Z3A.01 Less than 8 weeks gestation of pregnancy; F17.200 Nicotine dependence, unspecified, uncomplicated
CPT/HCPCS: 36415; 76817; 80053; 81001; 83690; 84702; 85025; 93976; 99284